=== PATIENT | female | born 1985 | race Caucasian/White ===

== ENCOUNTER 2017-01-04 18:50 | Emergency (ER) | payer OTHER ==
[~2017-01-04] VITALS: Ht 157.5 cm; Wt 86.4 kg
[~2017-01-04 18:50] MED LIST: NOMED
[2017-01-04 19:19] VITALS: BP 123/3; PULSE 64; RESP 18; O2SAT 99
--- NOTE | 2017-01-04 19:53 | ED.REPORT ---
HPI- Female Date of Service Jan 04, 2017 ED Provider: Terry Chavez DO The patient is a 31 year old female w/ a hx of ectopic who presents to the ED due to abdominal pain onset today. Last week, she was diagnosed with an 18 week demise. She is scheduled for a DNC next Thursday. Associated symptoms include vaginal pain, warmth, and vaginal spotting. Nursing Notes Stated Complaint: POSSIBLE DNC/NO HEARTBEAT Chief Complaint: Female Abdominal Pain Nursing Notes Reviewed: Yes Allergies: Coded Allergies: influenza virus vaccine, specific (Verified Allergy, Intermediate, Nausea, Vomiting, 01/04/17) No Active Prescriptions or Reported Meds General Time Seen by MD: 19:52 Chief Complaint Abdominal pain... Hx Obtained From: Patient Arrived By: Walk-in Sudden in Onset?: Yes Onset Occurred: 5 - 8 hours ago Symptom Duration: Since onset Location: : RLQ Quality: Painful Severity: Current: Moderate Recent Healthcare: Recent doctor visit Similar Sx Previous: Yes Past Medical History Past Medical History denies Past Surgical History hx of ectopic Smoking History Unknown if Ever Smoker Social History Alcohol Use: Denies alcohol use Drug Use: Denies drug use Ambulatory Status Independent Review of Systems Constitutional: Denies: Fever GI: Reports: Abdominal pain, Denies: Diarrhea, Vomiting Female: Reports: Pelvic pain, Vaginal bleeding - abnl, Denies: Dysuria Musculoskeletal: Denies: Back pain Endocrine: Denies: Cold intolerance Complete sys rev & neg: except as marked. Physical Exam Initial Vital Signs Vital Signs (First) Date Time Temp Pulse Resp B/P Pulse Ox O2 Delivery O2 Flow Rate FiO2 01/04/17 19:19 36.6 64 18 123/3 99 Room Air Initial VS: Reviewed General/Constitutional: Well-developed, Well-nourished Head / Eyes: Atraumatic, Normocephalic ENT: Mucous membranes moist, Conjunctiva normal, No scleral icterus Neck: Supple, Non-tender Respiratory: Breath sounds normal, Clear to auscultation Cardiovascular: Regular rate & rhythm, Heart sounds normal Abdomen / GI: Soft, Non-tender, No guarding, No rebound, No distention Lymphatic: No lymphadenopathy Extremities: Vascular intact, Neuro intact, No swelling, No tenderness Skin: Warm, Dry, No cyanosis Neurologic: Alert, Oriented, Nonfocal Psychiatric: Mood/affect normal, Behavior normal, Normal thought content Interpretation & Diagnostics Lab Results Interpretation Result Diagram: 01/04/17203901/04/172039 Test 01/04/17 20:40 01/04/17 21:50 White Blood Count 7.2th/mm3 (3.8-10.1) Red Blood Count 4.55mil/mm3 (3.90-5.20) Hemoglobin 12.7g/dL (12.0-15.6) Hematocrit 37.4% (35.0-46.0) Mean Corpuscular Volume 82.2fL (81-100) Mean Corpuscular Hemoglobin 27.9pg (27.0-35.0) Mean Corpuscular Hemoglobin Concent 34.0% (32.0-37.0) Red Cell Distribution Width 14.2% (12.3-15.4) Platelet Count 209bil/L (150-400) Neutrophils (%) (Auto) 66.2% (40-74) Lymphocytes (%) (Auto) 24.3% (14-46) Monocytes (%) (Auto) 8.2% (4-12) Eosinophils (%) (Auto) 0.6% (0-5) Basophils (%) (Auto) 0.6% (0-3) Sodium Level 133mEq/L (134-144) Potassium Level 3.6mEq/L (3.5-5.2) Chloride Level 96mEq/L (97-108) Carbon Dioxide Level 23mmol/L (18-29) Blood Urea Nitrogen 11mg/dL (6-20) Creatinine 0.53mg/dL (0.57-1.00) Estimat Glomerular Filtration Rate 190mL/min (>59) Glucose Level 101mg/dL (60-99) Lactic Acid Level 1.2mmol/L (0.4-2.0) Calcium Level 9.7mg/dL (8.5-10.1) Total Bilirubin 0.2mg/dL (0.0-1.2) Aspartate Amino Transf (AST/SGOT) 15U/L (0-50) Alanine Aminotransferase (ALT/SGPT) 12U/L (0-32) Alkaline Phosphatase 68U/L (25-150) Total Protein 7.2g/dL (6.4-8.4) Albumin 4.2g/dL (3.4-5.0) Urine Color Yellow (YELLOW) Urine Appearance Clear (CLEAR,HAZY) Urine pH 7.0 (5.0-8.0) Urine Specific [place] 1.010 (1.003-1.035) Urine Protein Negativemg/dL (NEG,TRACE) Urine Glucose (UA) Negativemg/dL (NEGATIVE) Urine Ketones Negativemg/dL (NEGATIVE) Urine Occult Blood Moderate (NEGATIVE) Urine Nitrite Negative (NEGATIVE) Urine Bilirubin Negative (NEGATIVE) Urine Urobilinogen Normalmg/dL (NORMAL) Urine Leukocyte Esterase Negative (NEGATIVE) Urine RBC 0-2/hpf (0-2) Urine WBC 0-5/hpf (0-5) Urine Epithelial Cells Moderate/hpf (NONE-MOD) Urine Crystals Amorphous urates (NONE Urine Bacteria Few/hpf (NONE-FEW) Urine Hyaline Casts None/lpf (NONE) Urine Granular Casts None seen (NONE SEEN) Urine Waxy Casts None seen (NONE SEEN) Urine Red Blood Cell Casts None seen (NONE SEEN) Urine White Blood Cell Casts None seen (NONE SEEN) Urine Mucus None seen (None Seen) Urine Trichomonas None seen (NONE SEEN) Urine Yeast None (NONE SEEN) Urinalysis Comment None Urine Culture Reflexed Not indicated Re-Eval/Medical Decision Med Decision/Clinical Course Ultrasound shows a 10 week 4 day demise. Clinically no signs of a septic . I consulted with gynecology. Recommendations are for outpatient D&C as scheduled. Return if any problems or signs of infection. Return if any hemorrhage. She is discharged in stable condition. No signs of infection. She is not in active labor. Short course of opiates prescribed for pain. Consultation : Referral / Consult Name: Michelle Bashir MD Call Returned at: 21:58 Fiber Optic Central Office Installer: Agrees with eval, Agrees with plan Note: Case discussed w/ OB. Dr. Bashir advises to send home with pain medication and let miscarriage occur naturally. Counseled Regarding: Diagnosis, Lab results, Need for follow-up, When/why to return to ED Discharge & Departure Impression: Primary Impression: demise Disposition: Home Discharge Condition All VS Reviewed: Yes Condition: Stable Patient Instructions: Intrauterine Demise (ED), Spontaneous Miscarriage ( ED) Additional Instructions: Take 1-2 Percocet every 6 hrs as needed for pain. Take Zofran for nausea every 8 hrs or as needed. Do not drive or drink according some acetaminophen while taking the pain medication. Read the aftercare instructions and keep your follow up appointment for the DNC. For any problems or worsening symptoms consider seeing Dr. Bashir or return to the Emergency Department. We are always here to help! Referrals: Roque Goodrich MD (PCP) Michelle Bashir MD Attestation Portion of this note were transcribed by Melanie Jhaveri. I, Dr. Chavez, personally performed the history, physical exam, and medical decision-making: I reviewed and confirmed the accuracy for the information in the transcribed note. Signed by: ishmael Ivory, 01/04/17 2200 copies to: Michelle Bashir MD; Roque Goodrich MD, Todd P DO Jan 04, 2017 19:53 Melanie Jhaveri Jan 04, 2017 20:06
[2017-01-04] MEDS ORDERED: 0.9% Sodium Chloride 1,000 ML IV ONE (20:00)
[2017-01-04] MEDS ORDERED: HYDROmorphone 0.5 mg/0.5 mL iSecure Syringe IVPUSH PRN (20:00)
[2017-01-04 20:51] LABS: BASOPHILS % (AUTO) 0.6 % (0-3); EOSINOPHILS % (AUTO) 0.6 % (0-5); MONOCYTES % (AUTO) 8.2 % (4-12); Mean Corpuscular Hemoglobin 27.9 pg (27.0-35.0); Mean Corpuscular Volume 82.2 fL (81-100); NEUTROPHILS % (AUTO) 66.2 % (40-74); Platelet Count 209 bil/L (150-400)
[2017-01-04 21:34] VITALS: BP 120/85; PULSE 78; RESP 16; O2SAT 98
[2017-01-04] MEDS ORDERED: _Ondansetron ODT 4 mg Tablet PO PRN (22:20)
[2017-01-04] MEDS ORDERED: _oxyCODONE/APAP 5-325 mg Tablet PO PRN (22:20)
[2017-01-04 22:21] LABS: APPEARANCE,URINE CLEAR (CLEAR,HAZY); COLOR,URINE YELLOW (YELLOW); OCCULT BLOOD,URINE MODERATE (NEGATIVE); UROBILINOGEN,URINE NORMAL (NORMAL)
[2017-01-04 22:34] VITALS: BP 106/70; PULSE 79; RESP 16; O2SAT 96
--- NOTE | 2017-01-05 08:37 | DRSVH ---
PROCEDURE: US OB<14 WKS INDICATIONS: 18 week, no heart beat OUTSIDE/PRIOR DATING DATA: First dating scan (date and location): 01/04/17. Estimated date of delivery (YARON) from first dating scan: N./A.. TECHNIQUE: Real-time scanning was performed of the fetus and maternal pelvic organs, with image documentation. Endovaginal scanning was also performed to better visualize the fetus and maternal ovaries. COMPARISON: None. FINDINGS: Embryo: OB-SCRAP DROP ENGINEER Ultrasound Procedure Report Early Gestation [facility] [place] Rump Length: 3.70 cm Gestational Age (CRL): 10 weeks, 4 days Summary Fetus Summary Heart Rate: No heart tones. Comments: A normal yolk sac is noted. No perigestational bleeds. Measurement variability in dating: +/- 4 weeks by LMP, +/- 7 days by mean sac diameter (use before 6 weeks gestation if crown-rump length not able to be measured), +/- 5 days by crown-rump length (6-12 weeks gestation). Maternal organs: Ovaries within normal limits. Limited images through the kidneys demonstrate no hy dronephrosis. IMPRESSION: demise at roughly 10 weeks 4 days by the crown-rump length. Dr. Chavez given results by the infrastructure design engineer at 0925 hrs.. Note: These findings are concordant with the preliminary interpretation. Dictated by: Da AVENDAÑO Interpreted: Tammy Morrison MD on 01/05/2017 at 8:34 Transcribed by: DANIELA on 01/05/2017 at 8:36 Approved by: Tammy Morrison M.D. on 01/05/2017 at 17:12
== END 2017-01-04 22:50 | disposition home or self-care (01) ==
LOC: SED 18:50
DX: O36.4XX0 Maternal care for intrauterine death, not applicable or unspecified (principal); R10.31 Right lower quadrant pain; Z88.7 Allergy status to serum and vaccine
CPT/HCPCS: 36415; 76801; 80053; 81000; 83605; 85025; 96361; 96374; 99285; J1170; J7030

== ENCOUNTER 2017-01-06 19:28 | Day surgery (SDC) | payer OTHER ==
[2017-01-06] VITALS (10 sets, daily range): BP systolic 89–152; BP diastolic 51–109; PULSE 68–82; RESP 12–18; O2SAT 97–100
--- NOTE | 2017-01-06 19:39 | ED.REPORT ---
HPI- Female Date of Service January 06, 2017 ED Provider: Dr. Clements The patient is a 31 y/o female with history of an ectopic , who presents to the ED c/o vaginal bleeding that began 3 days ago. She is concerned the bleeding may be associated with a miscarriage at 18 weeks. The bleeding started to increase at 1300 today and has became even more severe since 1600 when she passed a large amount of blood while she was in the bathtub. She reports becoming dizzy, light headed, and diaphoretic at this time. Associated symptoms also include lower abdominal pain, cramping, and a 4-5/10 headache. She has not eaten today. Nursing Notes Stated Complaint: ABDOMINAL PAIN Chief Complaint: Female Abdominal Pain Nursing Notes Reviewed: Yes Allergies: Coded Allergies: influenza virus vaccine, specific (Verified Allergy, Intermediate, Nausea, Vomiting, 01/04/17) Scheduled Ferrous Sulfate (Ferrous Sulfate) 325 Mg Tablet 325 MG PO TID Scheduled PRN Docusate Sodium (Colace) 100 Mg Capsule 100 MG PO BID PRN PRN For Constipation Ibuprofen (Ibuprofen) 800 Mg Tablet 800 MG PO TID PRN PRN For Pain oxyCODONE-Acetaminophen 5-325 mg (oxyCODONE-Acetaminophen 5-325 mg) 1 Each Tablet 1-2 TAB PO Q6H PRN PRN For Pain General Time Seen by MD: 19:39 Chief Complaint Vaginal bleeding... (Moderate) Hx Obtained From: Patient Arrived By: Ambulance Sudden in Onset?: Yes Onset Occurred: 5 - 8 hours ago Symptom Duration: Since onset Location: : Abdomen lower Quality: Painful Severity: Current: Moderate Severity: Maximum: Moderate Recent Healthcare: No recent doctor visit, No recent hospitalization Similar Sx Previous: No Past Medical History Past Medical History denies Past Surgical History hx of ectopic Family History Noncontributory Smoking History Unknown if Ever Smoker Social History Alcohol Use: Denies alcohol use Drug Use: Denies drug use Other Social History: Local resident Ambulatory Status Independent Review of Systems GI: Reports: Abdominal pain Female: Reports: Vaginal bleeding - abnl Skin: Reports Diaphoresis Neurologic: Reports: Dizziness, Headache, Lightheaded Complete sys rev & neg: except as marked. Physical Exam Initial Vital Signs Vital Signs (First) Date Time Temp Pulse Resp B/P Pulse Ox O2 Delivery O2 Flow Rate FiO2 01/06/17 19:30 37 74 12 91/59 97 Room Air Initial VS: Reviewed, Vital signs abnormal Head / Eyes: Atraumatic, Normocephalic Neck: Supple, Non-tender Respiratory: Breath sounds normal, No respiratory distress Cardiovascular: Regular rate & rhythm, Heart sounds normal Extremities: Vascular intact, Neuro intact, No swelling, No tenderness Skin: Warm, Dry Neurologic: Alert, Oriented Psychiatric: Mood/affect normal, Behavior normal Vaginal Bleeding / Discharge: Positive: Bleeding mild Continuous trickling of blood General/Constitutional: Awake, Alert, Not toxic appearing Abdomen: Soft, No guarding, No rebound, BS normoactive, No distention Tenderness/Guarding/Rebound: Positive: Tender suprapubic ENT: Atraumatic, Pharynx NL Mouth: Positive: Mucous membranes dry Interpretation & Diagnostics Lab Results Interpretation Result Diagram: 01/06/17200901/06/177 Test 01/06/17 19:37 01/06/17 20:10 White Blood Count 10.3th/mm3 (3.8-10.1) Red Blood Count 4.29mil/mm3 (3.90-5.20) Mean Corpuscular Volume 84.1fL (81-100) Mean Corpuscular Hemoglobin 28.0pg (27.0-35.0) Mean Corpuscular Hemoglobin Concent 33.2% (32.0-37.0) Red Cell Distribution Width 13.8% (12.3-15.4) Platelet Count 238bil/L (150-400) Neutrophils (%) (Auto) 66.7% (40-74) Lymphocytes (%) (Auto) 25.1% (14-46) Monocytes (%) (Auto) 7.4% (4-12) Eosinophils (%) (Auto) 0.4% (0-5) Basophils (%) (Auto) 0.3% (0-3) Hold Purple Top Tube Received (Received) Hold Blue Top Tube Received (Received) Sodium Level 133mEq/L (134-144) Potassium Level 3.4mEq/L (3.5-5.2) Chloride Level 97mEq/L (97-108) Carbon Dioxide Level 21mmol/L (18-29) Blood Urea Nitrogen 8mg/dL (6-20) Creatinine 0.65mg/dL (0.57-1.00) Estimat Glomerular Filtration Rate 150mL/min (>59) Glucose Level 113mg/dL (60-99) Calcium Level 9.3mg/dL (8.5-10.1) Magnesium Level 1.7mg/dL (1.6-2.6) Total Bilirubin 0.3mg/dL (0.0-1.2) Aspartate Amino Transf (AST/SGOT) 15U/L (0-50) Alanine Aminotransferase (ALT/SGPT) 10U/L (0-32) Alkaline Phosphatase 65U/L (25-150) Total Protein 7.3g/dL (6.4-8.4) Albumin 4.0g/dL (3.4-5.0) Lipase 36U/L (13-60) Hold [place] Top Tube Received (Received) Hemoglobin 9.7g/dL (12.0-15.6) Hematocrit 29.6% (35.0-46.0) Re-Eval/Medical Decision Med Decision/Clinical Course The patient presents with heavy bleeding after a miscarriage. On exam she had continual bleeding and was noted to be hypotensive and quite pale. At home she had a near syncopal episode and she remains symptomatic care. I spoke with the on-call hydraulic tester Dr Quiñones who came in and took the patient or for D&C. Source of Hx: Old records Re-Evaluation/Progress : Time of Eval: 20:11 Re-Evaluation/Progress Note: Patient is informed that there will be a need to operate. She understands and agrees with the plan. All questions have been answered at this time Consultation : Referral / Consult Name: Rosaura Quiñones MD Call Returned at: 19:48 Acid Dumper: Will see patient, Agrees with eval, Agrees with plan, Requested OR Note: Patients condition is discussed. Counseled Regarding: Diagnosis, Lab results, Need for admission Discharge & Departure Impression: Primary Impression: Incomplete with delayed or excessive hemorrhage Disposition: ADMITTED TO HOSPITAL Discharge Condition All VS Reviewed: Yes Condition: Stable Referrals: Roque Goodrich MD (PCP) Scribe Attestation Portions of this note were transcribed by Lyndon San and Karely Mcgovern. I, Dr. Clements personally performed the history, physical exam and medical decision- making; I reviewed and confirmed the accuracy of the information in the transcribed note. Signed by: Lyndon San and Janet Chatman, 01/06/2017 - 1. copies to: Roque Goodrich MD, Jena M MD January 06, 2017 19:39 Lyndon San January 06, 2017 19:49 Karely Mcgovern January 06, 2017 22:17
[2017-01-06] MEDS ORDERED: 0.9% Sodium Chloride 1,000 ML IV ONE (19:40)
[2017-01-06 19:50] LABS: BASOPHILS % (AUTO) 0.3 % (0-3); EOSINOPHILS % (AUTO) 0.4 % (0-5); MONOCYTES % (AUTO) 7.4 % (4-12); Mean Corpuscular Volume 84.1 fL (81-100); NEUTROPHILS % (AUTO) 66.7 % (40-74); Platelet Count 238 bil/L (150-400)
[2017-01-06 20:04] LABS: Magnesium 1.7 mg/dL (1.6-2.6)
[2017-01-06] MEDS ORDERED: Dexamethasone 4 mg/mL Inj ONE (20:59)
[2017-01-06] MEDS ORDERED: Propofol 10,000 mCg/mL 20 mL Inj ONE (20:59)
[2017-01-06] MEDS ORDERED: Ondansetron 2 mg/mL 2 mL Inj ONE (20:59)
[2017-01-06] MEDS ORDERED: Phenylephrine/NS-PF 100 mCg/mL 5 mL Syringe IVPUSH ONE (20:59)
[2017-01-06] MEDS ORDERED: fentaNYL-PF 50 mCg/mL 2 mL Inj ONE (20:59)
--- NOTE | 2017-01-06 21:19 | HP ---
[address] [address] HISTORY AND PHYSICAL PATIENT: DEAN TAYLOR : 1985 MR#: [id number] ADMIT: 01/06/2017 JOB ID: [id number] CHIEF COMPLAINT: Miscarriage. HISTORY OF PRESENT ILLNESS: This is a 31-year-old, G9, P 4-0, now 5-4 female, who is presenting to the emergency department complaining of experiencing a miscarriage. She is approximately 18 weeks gestational age based off her last menstrual period, but an ultrasound completed three days ago at [facility] showed that she had an intrauterine demise at approximately 10 weeks, four days gestational age. Earlier today, she began experiencing heavy vaginal bleeding and she presented to the emergency department for this. It in the emergency department, at the time of evaluation, she was hypotensive and was noted to have brisk bleeding, and because of this. CHIP LOFT WORKER was consulted. PAST MEDICAL HISTORY: Denies. PAST SURGICAL HISTORY: Surgery for ectopic . OBSTETRICAL HISTORY: She is a G9, P 4-0-5-4. She has had four spontaneous vaginal deliveries that were uncomplicated in the remote past. She states that her first was an ectopic requiring surgery at the age of 15, and then she has had three early miscarriages in addition to her current , that is not viable. SOCIAL HISTORY: She denies any tobacco, alcohol, or drug use. FAMILY HISTORY: Noncontributory. MEDICATIONS: Include vitamins. ALLERGIES: She has an allergy to the flu vaccination. REVIEW OF SYSTEMS: She denies any dizziness, chest pain, or shortness of breath currently. She does note chills, and she states that she was passing large, up to softball-size clots earlier today. The emergency department states that she has been filling pads every 20-30 minutes. OBJECTIVE.: Her temperature is 37 degrees. Her pulse is 74, respiratory rate is 12, and her blood pressure is 91/59. She is satting 97% on room air. In general, she is awake, alert, oriented. She is in no acute distress. Her heart shows regular rate and rhythm. Lungs are clear to auscultation bilaterally. Her abdomen is soft. It is tender in the midline and to the left of the midline, suprapubic tenderness. Ultrasound shows the uterus with large amount of clot within the uterine cavity and the speculum exam shows brisk vaginal bleeding with a removal of a baseball-size blood clot with heavy vaginal bleeding. behind this as well. LABORATORY DATA: At the time of admission, her white count is 10.3, her hemoglobin is 12.0, her platelets are 238. Her hemoglobin was re-drawn approximately an hour after admission and her hemoglobin had dropped from 12.0 down to 9.7. ASSESSMENT/PLAN: This is a 31-year-old, 9, para 4-0-5-4, female, who is presenting with a miscarriage of approximately a 10-1/2-week intrauterine , who is having heavy vaginal bleeding related to this, with concern for hemodynamic instability due to her heavy vaginal bleeding. My plan, at this point in time, due to her heavy vaginal bleeding, rapid drop in her hemoglobin and hypotension, she will be brought to the operating room for an emergent suction dilation and curettage. Risks, benefits, and alternatives were discussed with her prior to the procedure. She would accept a blood transfusion if needed. Her blood type is unknown and this will be ordered at this time. And if she is Rh negative, rhoGAM will be given. JAZMÍN
[2017-01-06] MEDS ORDERED: Lactated Ringer's 500 ML IV PRN (21:27)
[2017-01-06] MEDS ORDERED: Lactated Ringer's 1,000 ML IV SCH (21:27)
--- NOTE | 2017-01-06 21:27 | PCM.HPANE ---
Patient Data Surgeon Admitting Provider: Attending Provider:Rosaura Quiñones MD Primary Care Physician:Roque Goodrich MD Other Provider: Reason for Visit Retain Products Of Conception Ht/WT & BMI Weight (Kilograms): 86.36 Body Mass Index Allergies Coded Allergies: influenza virus vaccine, specific (Verified Allergy, Intermediate, Nausea, Vomiting, 01/04/17) Past Anesthesia History Anesthesia History: Denies:: Abnormal Airway, Anesthesia Reactions, Difficult Intubation, Fam Anesthesia Reaction, Fam Malignant Hypertherm, Malignant Hyperthermia Diabetes History Hx Diabetes?: No Medications Hypertension Medication: No Home Meds Incl Beta Fabian: No Discontinued Reported Medications No Historical Medication Ea 11/17/13 History History of ENT Problems?: No HEENT History: Denies:: Abnormal Airway Cataracts Difficult Intubation Dysphagia Glaucoma Hearing Problem Sinus Problem TMJ Denture Type: None Teeth Condition: Within Normal Limits Hx of Heart Problems?: No Cardiovascular History: Denies:: Congestive Heart Failure Hypertension Hx of Respiratory Problem?: No Respiratory History: Denies:: Tuberculosis Hx Neurologic Problems?: No Hx of GI Problems?: No Hx of Problems?: No Female Hx: Denies:: Currently Endometriosis Pelvic Inflammatory Problems with Breasts? Skin History: Denies:: History Skin Disorders? Pressure Ulcers Hx Musculoskeletal Problems?: No Hx Surgeries?: Yes (ECTOPIC, T & A, EAR X 3) Hx Any Other Health Problems?: No Hx Diabetes: No Hx Alcohol Use: NoHx Substance Use: No Smoking Status: Unknown if Ever Smoker Have You Smoked inLast 12 mo: No Stop/Bang Treated for Sleep Apnea?: No Do You Have a CPAP Machine?: No S-Snoring: Do You Snore Loudly: No T-Tired: feel tired, fatigued: No O-Obsered: Observed not breath: No P-Blood Pressure: treated: No B- Body Mass Index > 35 kg/m2: No A- Age over 50: No N- Neck Large Circumference: No G- Gender Male: No [place] Risk Assessment: Low Risk, <3 Yes Risk Assessment Category Category 1A: Patient has history of documented sleep apnea, and HAS NOT received any narcotic, sedative or anesthesia administration during this stay. Category 1B: Patient has history of documented sleep apnea, and HAS received any narcotic , sedative or anesthesia administration during this stay Category 2: Patient has SUSPECTED Obstructive Sleep Apnea, and HAS received any narcotic , sedative or anesthesia administration during this stay. Category 3: Patient has SUSPECTED Obstructive Sleep Apnea and HAS NOT received narcotic, sedative or anesthesia administration during this stay. Category 4: Outpatient in Procedural Areas with known sleep apnea or who screen positive for High Risk via the STOP/BANG questionnaire. Exam Exam Vital Signs Vital Signs Date Time Temp Pulse Resp B/P Pulse Ox O2 Delivery O2 Flow Rate FiO2 01/06/17 19:30 37 74 12 91/59 97 Room Air General Appearance: Alert, Oriented X3, Cooperative HEENT/AIRWAY: MP 1 Lungs: Clear to Auscultation Heart: Exam Unremarkable, Regular Rate/Rhythm Meds/Labs/Diagnostics Admission Meds Current Medications Sodium Chloride (Normal Saline) 1,000 ml @ 0 mls/hr Q0M ONCE IV Last administered on 01/06/17t 19:49; Start 01/06/17 at 19:40; Stop 01/06/17 at 19:41; Status DC Labs Test 01/06/17 19:37 01/06/17 20:10 White Blood Count 10.3th/mm3 (3.8-10.1) Red Blood Count 4.29mil/mm3 (3.90-5.20) Mean Corpuscular Volume 84.1fL (81-100) Mean Corpuscular Hemoglobin 28.0pg (27.0-35.0) Mean Corpuscular Hemoglobin Concent 33.2% (32.0-37.0) Red Cell Distribution Width 13.8% (12.3-15.4) Platelet Count 238bil/L (150-400) Neutrophils (%) (Auto) 66.7% (40-74) Lymphocytes (%) (Auto) 25.1% (14-46) Monocytes (%) (Auto) 7.4% (4-12) Eosinophils (%) (Auto) 0.4% (0-5) Basophils (%) (Auto) 0.3% (0-3) Hold Purple Top Tube Received (Received) Hold Blue Top Tube Received (Received) Sodium Level 133mEq/L (134-144) Potassium Level 3.4mEq/L (3.5-5.2) Chloride Level 97mEq/L (97-108) Carbon Dioxide Level 21mmol/L (18-29) Blood Urea Nitrogen 8mg/dL (6-20) Creatinine 0.65mg/dL (0.57-1.00) Estimat Glomerular Filtration Rate 150mL/min (>59) Glucose Level 113mg/dL (60-99) Calcium Level 9.3mg/dL (8.5-10.1) Magnesium Level 1.7mg/dL (1.6-2.6) Total Bilirubin 0.3mg/dL (0.0-1.2) Aspartate Amino Transf (AST/SGOT) 15U/L (0-50) Alanine Aminotransferase (ALT/SGPT) 10U/L (0-32) Alkaline Phosphatase 65U/L (25-150) Total Protein 7.3g/dL (6.4-8.4) Albumin 4.0g/dL (3.4-5.0) Lipase 36U/L (13-60) Hold [place] Top Tube Received (Received) Hemoglobin 9.7g/dL (12.0-15.6) Hematocrit 29.6% (35.0-46.0) Plan Impression Patient chart reviewed, patient interviewed and anesthestic plan with risks, benefits, and alternatives discussed, and informed consent obtained. ASA Physical Status: ASA2 Plus Emergency Anesthetic Plan: GA Bene/Risks/Altern/Consents: Yes HP Complete Prior to Induction: Yes Juan Washington DO January 06, 2017 21:04
[2017-01-06] MEDS ORDERED: fentaNYL-PF 50 mCg/mL 2 mL Inj IVPUSH PRN (21:30)
[2017-01-06] MEDS ORDERED: Phenylephrine 10,000 mCg/mL Inj IVPUSH PRN (21:30)
[2017-01-06] MEDS ORDERED: Ondansetron 2 mg/mL 2 mL Inj IVPUSH PRN ×2 (21:30→21:50)
[2017-01-06] MEDS ORDERED: HYDROmorphone 1 mg/mL Inj IVPUSH PRN (21:30)
[2017-01-06] MEDS ORDERED: Dexamethasone 4 mg/mL Inj IVPUSH PRN (21:30)
[2017-01-06] MEDS ORDERED: MetoCLOpramide 5 mg/mL 2 mL Inj IVPUSH PRN ×2 (21:30→21:50)
[2017-01-06] MEDS ORDERED: EPHEDrine Sulfate 50 mg/mL Inj IVPUSH PRN (21:30)
[2017-01-06] MEDS ORDERED: Atropine 0.4 mg/mL Inj IVPUSH PRN (21:30)
--- NOTE | 2017-01-06 21:46 | PCM.DIGYN ---
Surgical Discharge Instruction Dates of Hospitalization Date of Hospital Admission Providers Admitting Physician: Primary Care Physician: Roque Goodrich MD Attending Physician: Rosaura Quiñones MD Diagnosis at Time of Discharge Diagnosis at time of discharge Incomplete miscarriage Problems: Diet Discharge Diet: No restrictions Activity Discharge Activity-General: Balance rest and activity, Activity as pain allows , No lifting >15 pounds for 2 weeks, Other (Pelvic rest until bleeding stops) Dressing and Incisional Care Hygiene: May shower, NO bathtub, hot tub or whirlpool Additional Instructions Discharge Instructions You have had an uncomplicated suction dilation and curettage, please call with severe pain, temperature greater than 100.5 degrees, dizziness, chest pain, shortness of breath, bleeding more than a pad per hour, or malodorous vaginal discharge. Follow Up Plan Follow-up Provider (F9): Rosaura Quiñones MD Follow-up appointment: Weeks (2) Rosaura Quiñones MD January 06, 2017 21:45
[2017-01-06] MEDS ORDERED: IBUP800T28 PO (21:47)
[2017-01-06] MEDS ORDERED: OXYC1TAB24 PO (21:47)
[2017-01-06] MEDS ORDERED: FERR-83 PO (21:47)
[2017-01-06] MEDS ORDERED: DOCU-41 PO (21:48)
--- NOTE | 2017-01-06 21:49 | PCM.ANEP1 ---
Post Anesthesia Phase 1 PACU Phase 1 Assessment Vital Signs Vital Signs Date Time Temp Pulse Resp B/P Pulse Ox O2 Delivery O2 Flow Rate FiO2 01/06/17 21:45 72 15 96/64 99 Room Air 01/06/17 21:40 74 18 89/67 98 Room Air 01/06/17 21:36 36.5 82 16 152/109 97 Room Air 01/06/17 21:03 68 16 94/62 97 Room Air 01/06/17 19:30 37 74 12 91/59 97 Room Air Anesthetic Administered: GA Level of Alertness: Awake, talking FERNÁNDEZ's with Equal Strength: Yes Pain: No Nausea or Vomiting: No Cardiovascular Function and Hy: Yes Oxygen Delivery: Room Air Lungs: Clear to Auscultation Dermatome Level: Full Sensation Complications: No Follow up Care: No Patient Instructions Provided: Yes Juan Washington DO January 06, 2017 21:49
[2017-01-06] MEDS ORDERED: diphenhydrAMINE 25 mg Capsule PO PRN (21:50)
[2017-01-06] MEDS ORDERED: oxyCODONE-Acetamin 5-325 mg Tablet PO PRN (21:50)
--- NOTE | 2017-01-06 22:53 | OP ---
[address] [address] OPERATIVE REPORT PATIENT: DEAN TAYLOR : 1985 MR#: [id number] ADMIT: 01/06/2017 JOB ID: [id number] DATE OF SURGERY: 01/06/2017 PREOPERATIVE DIAGNOSIS(ES): Incomplete . POSTOPERATIVE DIAGNOSIS(ES): Incomplete . PROCEDURE PERFORMED: Suction dilation and curettage. SURGEON: Rosaura Quiñones MD. ANESTHESIA: LMA. ESTIMATED BLOOD LOSS: 250 cc. URINE OUTPUT: Straight cath for 300 cc at the start of the procedure. FINDINGS: A 13 week size uterus, patent cervical os, moderate amount of products of conception. COMPLICATIONS: None apparent. INDICATIONS: This is a 31-year-old, G9, P4-0-5-4 female who presented to the emergency department on the evening hours of January 06 complaining of heavy uterine bleeding associated with miscarriage. She had a known intrauterine and three days prior had been diagnosed with demise at approximately 10-1/2 to 11 weeks when she should have been approximately 18 weeks based off her last menstrual period. She then began having heavy bleeding on January 06, passing large blood clots and was hypotensive so she presented to the emergency department. She was noted to be having brisk bleeding and her hemoglobin dropped from 12 at the time of her initial ambulance ride to 9.7 less than an hour after admission to the emergency department. Speculum exam showed a large amount of products of conception coming from the cervical os and she had a moderate amount of products within her uterine cavity on bedside ultrasound. Risks, benefits and alternatives were discussed with her prior to proceeding with the suction dilation and curettage. She elected to proceed. Blood type is B+ PROCEDURE: The patient was taken to the operating room. She was placed in dorsal lithotomy position in [facility]. Prepped and draped in usual sterile fashion. Under excellent anesthesia, a bivalve speculum was placed after she was straight catheterized for 300 cc of clear yellow urine. The cervix was grasped with a tenaculum and she was noted to have a patent cervix with a large amount of tissue at the cervical os. She sounded to 13 cm in size and a size 12 suction curette was introduced. Because her cervix was open dilation was not necessary to allow for the size 12 curved suction curette. She was then curetted using the suction curettage until no remaining products of conception were removed from her uterus. Following this, a sharp curettage was completed until a gritty cry was felt along the entirety of the uterine cavity. Final suction curettage was then completed and the patient was noted to be hemostatic following completion. The tenaculum was then removed and her tenaculum sites were rendered hemostatic with gentle pressure at the tenaculum site. When these were hemostatic the speculum was then removed. The patient tolerated this procedure well. Recovered in PACU. All sponge, needle and instrument counts were correct at the completion of the procedure. JAZMÍN
--- NOTE | 2017-01-06 23:13 | NUR ---
Patient arrived to [facility] at 2240 with discharge orders and instructions in hand via [facility] [employer] after receiving report for PACU. Patient alert and oriented. Denies chest pain, shortness of breath, and general pain. Patient urinated I and ambulated around the hallway while denying nausea, dizziness and headache. Steady on feet. Scant bleeding noted on valentín pad. Patient's family here to take her home. Discharge Instructions read to patient and patient states an understanding. Patient ambulated independently out of the unit with family. Addendum: 01/06/17 at 2323 by CAITLIN KAMARA RN BP 96/63 hr 80 t-36.7, RR 18 O2 98% RA. Left the [facility] unit at 2320, stable.
--- NOTE | 2017-01-08 10:55 | PATH ---
SURGICAL PATHOLOGY Attending Physician:Rosaura Quiñones, CASE STATUS: Signed Out PATIENT NAME: DEAN TAYLOR PID: [id number] : 1985 DATE COLLECTED:01/06/2017 00:00 SPECIMEN: Products of conception CLINICAL HISTORY: 1. POC AND CONTENTS FINAL DIAGNOSIS: 1.PRODUCTS OF CONCEPTION: PARTIALLY NECROTIC DECIDUAL TISSUE AND IMMATURE PLACENTAL TISSUE. SOME CHORIONIC VILLI HAVE SMALL VESSELS CONTAINING ERYTHROCYTES. ICD10 CODE O02.1 GROSS DESCRIPTION: Received in formalin, labeled "Vince", site unstated, the specimen consists of multiple fragments of dark obando soft tissue admixed with dark red to brown, friable blood clots together measuring 7.0 x 5.5 x 2.5 cm. Received also in the same container, a dark obando spongy structure partially covered with a troncoso-white, smooth, glistening surface resembling placental tissue measuring 5.5 x 4.0 x 1.5 cm. No parts are grossly recognized. News Library Director sections from possible placental tissue submitted in cassettes A, B and C, and mortician supplies sales representative sections from remaining tissue submitted in cassettes D-F. ([id number]) MICRO DESCRIPTION: See diagnosis. ICD-9 CODES: CPT CODES: 1: 08654 Electronically Signed Out Henrique Bartlett MD [facility] [address], [place] [address] Technical component performed at [facility], [facility] [address], [address]
== END 2017-01-06 23:10 | disposition home or self-care (01) ==
LOC: SED 19:28 → SAS 20:58 → OSC 22:30 → SAS 23:10
PROVIDERS: ATTEND Obstetrics & Gynecology
DX: O02.1 Missed abortion (principal); Z79.899 Other long term (current) drug therapy
CPT/HCPCS: 36415; 59820; 80053; 81025; 83690; 83735; 85014; 85018; 85025; 86922; 88305; 99285; J1100; J2370; J2405; J3010; J7030; J7120